=== PATIENT | male | born 1965 | race Caucasian/White ===

== ENCOUNTER 2020-09-05 20:22 | Observation (INO) | payer OTHER ==
[2020-09-05 20:34] VITALS: BMI 34.9
[2020-09-05] MEDS ORDERED: CALCIUM GLUCONATE 10% - 1,000 MG/10 ML VIAL IVPUSH ONE (20:35)
[2020-09-05] MEDS ORDERED: LACTATED RINGERS SOLUTION 1000 ML INFUS.BAG IV ONE ×2 (20:57→21:12)
[2020-09-05] MEDS ORDERED: CALCIUM GLUCONATE 10% - 1,000 MG/10 ML VIAL ONE (21:01)
[2020-09-05 21:03] LABS: BASO % 0.2 % (0-2.0); EOS % 0.2 % (0-4.5); LYMPH % 24.2 % (8-40); MCH 29.1 pg (25.7-33.7); MCHC 34.1 g/dl (32.0-35.9); MEAN CELL VOLUME 85.4 fl (80-96); MEAN PLT VOLUME 8.4 fl (7.5-11.1); MONO % 10.7 % (3.8-10.2); NEUT % 64.7 % (42.8-82.8); PLATELET COUNT 257 K/MM3 (134-434); RDW 14.1 % (11.9-15.9); WHITE BLOOD COUNT 8.8 K/mm3 (4.0-10.0)
[2020-09-05 21:14] LABS: INR 0.99 (0.83-1.09)
[2020-09-05 21:16] LABS: ACTIVATED PTT 29.7 SECONDS (25.2-36.5)
[2020-09-05 21:25] LABS: CALCIUM 8.9 mg/dL (8.5-10.1)
[2020-09-05 21:26] LABS: ALBUMIN 4.7 g/dl (3.4-5.0); BLOOD UREA NITROGEN 67.9 mg/dL (7-18)
[2020-09-05 21:29] LABS: PHOSPHOROUS 5.4 mg/dL (2.5-4.9)
[2020-09-05 21:31] LABS: BILIRUBIN,TOTAL 1.1 mg/dL (0.2-1); TOT PROT 8.9 g/dl (6.4-8.2)
[2020-09-05 21:35] LABS: N-TERMINAL BNP 20.1 pg/ml (5-125)
[2020-09-05] MEDS ORDERED: INSULIN REGULAR HUMAN 100 UNITS/ML *VIAL IVPUSH ONE (22:15)
[2020-09-05] MEDS ORDERED: DEXTROSE 50%-WATER - 25 GM/50 ML VIAL IVPUSH ONE (22:15)
[2020-09-05] MEDS ORDERED: DEXTROSE 50%-WATER 25 GM/50 ML DISP.SYRIN ONE (22:27)
[2020-09-05 23:17] LABS: EPI CELLS 9 /uL (0-25.1); HYALINE CASTS 7 /uL (0-3.1); URINE APPEARANCE CLOUDY; URINE BACTERIA 26 /uL (0-1359); URINE BILIRUBIN NEGATIVE (NEGATIVE); URINE COLOR YELLOW; URINE GLUCOSE (UA) TRACE (NEGATIVE); URINE KETONE NEGATIVE (NEGATIVE); URINE LEUK ESTERASE NEGATIVE (NEGATIVE); URINE NITRITE NEGATIVE (NEGATIVE); URINE PROTEIN TRACE (NEGATIVE); URINE RBC 30 /uL (0-23.9); URINE UROBILINOGEN 0.2 mg/dL (0.2-1.0); URINE WBC 10 /uL (0-25.8)
[2020-09-06] MEDS: LACTATED RINGERS SOLUTION 1,000 ML/1,000 ML INFUS.BAG IV SCH ×3 (01:15→22:13)
[2020-09-06] MEDS ORDERED: ACETAMINOPHEN 325 MG TABLET (FP) PO ONE (06:45)
[2020-09-06 08:32] LABS: HEMOGLOBIN 12.7 GM/dL (11.7-16.9); MCH 28.8 pg (25.7-33.7); MCHC 33.4 g/dl (32.0-35.9); MEAN CELL VOLUME 86.3 fl (80-96); MEAN PLT VOLUME 9.1 fl (7.5-11.1); PLATELET COUNT 217 K/MM3 (134-434); RDW 14.2 % (11.9-15.9); WHITE BLOOD COUNT 7.8 K/mm3 (4.0-10.0)
[2020-09-06 08:56] LABS: CALCIUM 8.8 mg/dL (8.5-10.1)
[2020-09-06 08:57] LABS: BLOOD UREA NITROGEN 58.7 mg/dL (7-18)
[2020-09-06 08:59] LABS: CREATININE 2.8 mg/dL (0.55-1.3)
[2020-09-06 09:01] LABS: BILIRUBIN,TOTAL 1.4 mg/dL (0.2-1); TOT PROT 7.1 g/dl (6.4-8.2)
[2020-09-06 09:02] LABS: ALBUMIN 3.7 g/dl (3.4-5.0)
[2020-09-06 09:44] LABS: ERYTHROCYTE SEDIMENTATION RATE 10 mm/hr (0-20)
[2020-09-07] MEDS: LACTATED RINGERS SOLUTION 1,000 ML/1,000 ML INFUS.BAG IV SCH (06:27)
[2020-09-07 10:20] LABS: CALCIUM 9.3 mg/dL (8.5-10.1)
[2020-09-07 10:24] LABS: BLOOD UREA NITROGEN 32.7 mg/dL (7-18); CREATININE 1.2 mg/dL (0.55-1.3)
[2020-09-07 12:23] VITALS: TEMP 98.1
[2020-09-07] MEDS ORDERED: amLODIPine BESYLATE 5 MG TABLET (FP) PO SCH (13:30)
[2020-09-07 14:53] VITALS: BP 139/79; PULSE 67
== END 2020-09-07 15:47 | disposition home or self-care (01) ==
LOC: JER 20:22 → JERBED 20:45 → UNDOADMOB 20:45 → INTOOBSV 20:45 → J5S 09-06 01:09 → JERBED 09-06 01:09 → J5S 09-07 13:25
PROVIDERS: ADMIT Specialist; ATTEND Specialist
PROC: BT40ZZZ Ultrasonography of Bladder (ICD-10-PCS; principal; 2020-09-07)
PROC: BT43ZZZ Ultrasonography of Bilateral Kidneys (ICD-10-PCS; 2020-09-07)
PROC: 3E033GC Introduction of Other Therapeutic Substance into Peripheral Vein, Percutaneous Approach (ICD-10-PCS; 2020-09-07)
PROC: 3E0333Z Introduction of Anti-inflammatory into Peripheral Vein, Percutaneous Approach (ICD-10-PCS; 2020-09-07)
PROC: 3E033VG Introduction of Insulin into Peripheral Vein, Percutaneous Approach (ICD-10-PCS; 2020-09-07)
DX: N17.9 Acute kidney failure, unspecified (principal); E87.5 Hyperkalemia; E83.39 Other disorders of phosphorus metabolism; E87.1 Hypo-osmolality and hyponatremia; E86.1 Hypovolemia; I10 Essential (primary) hypertension
CPT/HCPCS: 36415; 71045-TC-FY; 76775-TC; 80048; 80053; 81003; 82550; 82553; 82570; 83605; 83735; 83880; 84100; 84156; 84300; 84484; 84540; 85025; 85027; 85610; 85651; 85730; 86038; 86140; 87205; 93005; 93010; 99285-25; C9803; G0378; U0003; U0005

== ENCOUNTER 2023-11-08 15:29 | Emergency (ER) | payer OTHER ==
[2023-11-08 15:33] VITALS: BP 147/87; PULSE 65; RESP 18; TEMP 98.2; BMI 33.3
[2023-11-08] MEDS ORDERED: ACETAMINOPHEN 500 MG TABLET (FP) ONE (16:53)
[2023-11-08] MEDS ORDERED: IBUPROFEN 400 MG TABLET (FP) PO ONE (16:53)
[2023-11-08] MEDS: IBUPROFEN 400 MG TABLET (FP) PO ONE (16:56)
[2023-11-08] MEDS: ACETAMINOPHEN 500 MG TABLET (FP) PO ONE (16:57)
[2023-11-08 17:13] LABS: BASO % 0.4 % (0-2.0); EOS % 1.5 % (0-4.5); HEMATOCRIT 41.4 % (35.4-49); HEMOGLOBIN 13.9 GM/dL (11.7-16.9); LYMPH % 23.8 % (8-40); MCH 28.6 pg (25.7-33.7); MCHC 33.7 g/dl (32.0-35.9); MEAN PLT VOLUME 9.2 fl (7.5-11.1); MONO % 6.6 % (3.8-10.2); NEUT % 67.7 % (42.8-82.8); PLATELET COUNT 265 10^3/uL (134-434); RBC 4.87 M/mm3 (4.00-5.60); RDW 14.4 % (11.9-15.9); WHITE BLOOD COUNT 7.8 K/mm3 (4.0-10.0)
[2023-11-08 17:46] LABS: POTASSIUM 3.9 mmol/L (3.5-5.1)
[2023-11-08 17:48] LABS: BLOOD UREA NITROGEN 14.4 mg/dL (7-18)
[2023-11-08 17:52] LABS: CREATININE 0.9 mg/dL (0.55-1.3)
[2023-11-08 18:07] LABS: THROAT:GRP A STREP NOT DETECTED (NOTDETECTED)
== END 2023-11-08 18:43 | disposition home or self-care (01) ==
LOC: JERFT 15:29
DX: J02.9 Acute pharyngitis, unspecified (principal); Z20.822 Contact with and (suspected) exposure to COVID-19
CPT/HCPCS: 0241U-QW; 36415; 80048; 85025; 87651; 99283-25